=== PATIENT | female | born 1990 | race Caucasian/White ===

== ENCOUNTER 2017-05-10 22:26 | Emergency (ER) | payer SELFPAY ==
--- NOTE | 2017-05-10 22:32 | PDOC ---
History of Present Illness - General Chief Complaint: Injury Stated Complaint: INJURY RIGHT ANKLE Time Seen by Provider: 05/10/17 22:29 - History of Present Illness Initial Comments: This 26-year-old woman presents with a history of injuring her right ankle when sliding into third base while playing soft ball just prior to presentation. Patient states that she turned her ankle when this occurred and since then she has had pain with weightbearing. Patient has a history of a growth plate fracture in one of her ankles but is unsure if it was right or left. Otherwise , she has had no previous history of ankle injury. Patient denies any other injury and had no LOC. Past History - Past Medical History Allergies/Adverse Reactions: Allergies Allergy/AdvReac Type Severity Reaction Status Date / Time No Known Allergies Allergy Verified 05/10/17 22:27 Home Medications: Ambulatory Orders Bupropion HCl [Wellbutrin Sr] 150 mg PO DAILY 05/10/17 Escitalopram Oxalate [Lexapro -] 5 mg PO DAILY 05/10/17 Review of Systems - Review of Systems Able to Perform ROS?: Yes Comments:: 12 point review of systems is negative except for what is noted in the history of present illness *Physical Exam - Physical Exam Comments: GENERAL: Young adult female, alert and oriented 3, no acute distress HEAD: Normal with no signs of trauma. EYES: PERRLA, EOMI, sclera anicteric, conjunctiva clear. ENT: Ears normal, nares patent, oropharynx clear without exudates. Dry mucous membranes. NECK: Normal range of motion, supple without lymphadenopathy, JVD, or masses. LUNGS: Breath sounds equal, clear to auscultation bilaterally. No wheezes, and no crackles. HEART:Regular rate and rhythm, normal S1 and S2 without murmur, rub or gallop. ABDOMEN:.normal bowel sounds No guarding,tenderness or rebound.No masses No distention. EXTREMITIES: Right lower extremity: Mild tenderness, moderate edema lateral malleolus of the ankle No ecchymosis or deformity noted; no foot tenderness/edema/deformity noted Distal neurovascular functioning intact Remainder of the extremity exam is normal. NEUROLOGICAL: Cranial nerves II through XII grossly intact. Normal speech. No focal neurological deficits. MUSCULOSKELETAL: Back non-tender to palpation, no CVA tenderness SKIN: Warm, Dry, normal turgor, no rashes or lesions noted. Progress Note - Progress Note Progress Note: Right ankle x-ray showed no evidence of acute fracture or dislocation. Ankle stirrup removable splint placed; the patient and her mother state that they have crutches at home that are fitted for the patient. Meanwhile, the patient should elevate the right ankle as much as possible and apply ice for the next 2 days. Patient plays soft ball competitively and inquired when she can return to athletic activity. Patient should not return to athletic activity until cleared by an orthopedist. Alyson lyles is home restoration service supervisor for orthopedic surgery: Referral information given to the patient for follow-up appointment. *DC/Admit/Observation/Transfer Diagnosis at time of Disposition: Right ankle sprain Qualifiers: Encounter type: initial encounter Involved ligament of ankle: tibiofibular ligament Qualified Code(s): S93.431A - Sprain of tibiofibular ligament of right ankle, initial encounter - Discharge Dispostion Disposition: HOME Condition at time of disposition: Stable - Referrals Referrals: Joao Shields MD [Staff Physician] - - Patient Instructions Printed Discharge Instructions: Ankle Sprain Additional Instructions: ice/elevate the right ankle as much possible over the next 2 days Crutches for ambulation for the next 3 days Wear splint during the day for the next 10 days Ibuprofen/naproxen/acetaminophen as needed for pain Follow-up with orthopedist (Dr. Alyson lyles or other group as per insurance) prior to resuming athletic activity
[2017-05-10 22:35] VITALS: BP 119/76; PULSE 82; TEMP 98.1; BMI 29.2
== END 2017-05-11 00:22 | disposition home or self-care (01) ==
LOC: FER 22:26
DX: S93.431A Sprain of tibiofibular ligament of right ankle, initial encounter (principal); X58.XXXA Exposure to other specified factors, initial encounter; Y93.64 Activity, baseball; Y92.9 Unspecified place or not applicable
CPT/HCPCS: 73610-TC-RT; 84703; 99281-25

== ENCOUNTER 2017-12-14 02:13 | Emergency (ER) | payer OTHER ==
[2017-12-14 02:20] VITALS: BP 119/75; PULSE 78; TEMP 97.7; BMI 27.8
[2017-12-14 02:52] LABS: URINE APPEARANCE CLOUDY; URINE BILIRUBIN NEGATIVE (<2.0 mg/dL); URINE BLOOD 3+ (NEGATIVE); URINE COLOR AMBER; URINE GLUCOSE (UA) NEGATIVE (NEGATIVE); URINE KETONE NEGATIVE (NEGATIVE); URINE NITRITE NEGATIVE (NEGATIVE); URINE UROBILINOGEN NEGATIVE mg/dL (0.2-1.0)
[2017-12-14 02:54] LABS: URINE LEUK ESTERASE 3+ (NEGATIVE); URINE PROTEIN 3+ (NEGATIVE)
--- NOTE | 2017-12-14 03:02 | PDOC ---
History of Present Illness - General Chief Complaint: Urinary Problem Stated Complaint: BURNING, PAIN ON URINATION Time Seen by Provider: 12/14/17 02:20 - History of Present Illness Initial Comments: This 27-year-old woman with no significant past medical history presents one- day history of dysuria/intermittent pelvic cramping pain/mild hematuria. Patient had minimal dysuria 2 days ago and took [id number] Azo with resolution of symptom. Patient had one previous history of similar dysuria; at that time, [id number] medications were adequate for complete resolution of symptoms. Patient currently denies back/pelvic pain, fever/chills, nausea/ vomiting. LMP was last week. Past History - Past Medical History Allergies/Adverse Reactions: Allergies Allergy/AdvReac Type Severity Reaction Status Date / Time No Known Allergies Allergy Verified 12/14/17 02:15 Home Medications: Ambulatory Orders Bupropion HCl [Wellbutrin Sr] 150 mg PO DAILY 05/10/17 Escitalopram Oxalate [Lexapro -] 30 mg PO DAILY 05/10/17 Cephalexin Monohydrate [Keflex -] 500 mg PO Q8H #15 capsule 12/14/17 COPD: No Other medical history: ANXIETY/DEPRESSION - Suicide/Smoking/Psychosocial Hx Smoking History: Never smoked Have you smoked in the past 12 months: No Information on smoking cessation initiated: No Hx Alcohol Use: No Drug/Substance Use Hx: No Substance Use Type: None Review of Systems - Review of Systems Able to Perform ROS?: Yes Comments:: 12 point review of systems is negative except for what is noted in the history of present illness *Physical Exam - Vital Signs Last Vital Signs Temp Pulse Resp BP Pulse Ox 97.7 F 78 16 119/75 100 12/14/17 02:16 12/14/17 02:16 12/14/17 02:16 12/14/17 02:16 12/14/17 02:16 - Physical Exam Comments: GENERAL: Adult female, alert and oriented 3, in no acute distress HEAD: Normal with no signs of trauma. EYES: PERRLA, EOMI, sclera anicteric, conjunctiva clear. ENT: Ears normal, nares patent, oropharynx clear without exudates. Dry mucous membranes. NECK: Normal range of motion, supple without lymphadenopathy, JVD, or masses. LUNGS: Breath sounds equal, clear to auscultation bilaterally. No wheezes, and no crackles. HEART:Regular rate and rhythm, normal S1 and S2 without murmur, rub or gallop. ABDOMEN:.normal bowel sounds. Minimal suprapubic tenderness. No guarding or rebound.No masses No distention. EXTREMITIES: Normal range of motion, no edema. No clubbing or cyanosis. No erythema, or tenderness. NEUROLOGICAL: Cranial nerves II through XII grossly intact. Normal speech. No focal neurological deficits. MUSCULOSKELETAL: Back non-tender to palpation, no CVA tenderness SKIN: Warm, Dry, normal turgor, no rashes or lesions noted. ED Treatment Course - ADDITIONAL ORDERS Additional order review: Laboratory Results 12/14/17 12/14/17 02:21 02:21 Urine Color Ronna Urine Appearance Cloudy Urine pH 5.0 Ur Specific Chestnut 1.028 Urine Protein 3+ H Urine Glucose (UA) Negative Urine Ketones Negative Urine Blood 3+ H Urine Nitrite Negative Urine Bilirubin Negative Urine Urobilinogen Negative Ur Leukocyte Esterase 3+ H Urine HCG, Qual Negative Progress Note - Progress Note Progress Note: Urinalysis positive for WBCs(1342)/RBCs(1197); many mucus/few epi. Urine C&S vending. Patient will be treated empirically with Keflex 500 mg 3 times per day. First dose will be given here in the emergency room. Patient should return to ER if she has worsening of pain or experiences fever/ vomiting. Meanwhile, patient should drink plenty of water. She has OTC Azo at home which she can take as needed up to 3 times a day for dysuria over the next 24 hours. *DC/Admit/Observation/Transfer Diagnosis at time of Disposition: UTI (urinary tract infection) Qualifiers: Urinary tract infection type: acute cystitis Hematuria presence: with hematuria Qualified Code(s): N30.01 - Acute cystitis with hematuria - Discharge Dispostion Disposition: HOME Condition at time of disposition: Stable - Prescriptions Prescriptions: Cephalexin Monohydrate [Keflex -] 500 mg PO Q8H #15 capsule - Referrals - Patient Instructions Printed Discharge Instructions: Urinary Tract Infection Additional Instructions: Drink plenty of water Keflex 500 mg 3 times a day for 5 days Can take Azo as needed Return to ER if you have worsening pain/fever/vomiting Follow-up with your doctor within the next 3-4 days - Post Discharge Activity Forms/Work/School Notes: Back to Work
[2017-12-14 03:05] LABS: EPI CELLS RARE /HPF (FEW); URINE MUCUS MANY
[2017-12-14] MEDS ORDERED: CEPHALEXIN MONOHYDRATE 500 MG CAPSULE (UD) PO ONE (03:18)
[2017-12-14] MEDS ORDERED: CEPHALEXIN MONOHYDRATE 500 MG CAPSULE (UD) ONE (03:23)
== END 2017-12-14 03:27 | disposition home or self-care (01) ==
LOC: FER 02:13
DX: N30.01 Acute cystitis with hematuria (principal); F41.8 Other specified anxiety disorders
CPT/HCPCS: 81003; 81015; 84703; 87086; 99281-25

== ENCOUNTER 2020-07-20 11:21 | Emergency (ER) | payer OTHER | END 2020-07-20 12:53 | disposition home or self-care (01) | LOC: JVIRT 11:21 | DX: Z03.818 Encounter for observation for suspected exposure to other biological agents ruled out (principal) | CPT/HCPCS: C9803; Q3014-GT; U0003 ==

== ENCOUNTER 2023-07-14 19:30 | Emergency (ER) | payer BC, OTHER ==
[2023-07-14] MEDS ORDERED: ACETAMINOPHEN INJECTION 100 ML IVPB ONE (19:45)
[2023-07-14] MEDS ORDERED: diazePAM 2 MG TABLET ONE (19:45)
[2023-07-14 19:48] VITALS: BP 120/76; PULSE 58; RESP 18; TEMP 98.4; BMI 23.9
[2023-07-14] MEDS ORDERED: SODIUM CHLORIDE 1,000 ML IV ONE (20:26)
[2023-07-14] MEDS ORDERED: ONDANSETRON 4 MG/2 ML VIAL IVPB ONE (20:26)
[2023-07-14] MEDS ORDERED: MECLIZINE HCL 25 MG TABLET (FP) PO ONE (20:27)
[2023-07-14] MEDS ORDERED: ONDANSETRON 4 MG/2 ML VIAL ONE (20:30)
[2023-07-14 20:41] LABS: HEMATOCRIT 40.4 % (32.4-45.2); HEMOGLOBIN 13.9 G/dL (10.7-15.3); MCH 30.1 pg (25.7-33.7); MCHC 34.3 g/dl (32.0-36.0); MEAN CELL VOLUME 87.9 fl (80-96); MEAN PLT VOLUME 8.8 fl (7.5-11.1); PLATELET COUNT 269.8 10^3/uL (134-434); RDW 13.9 % (11.6-15.6); WHITE BLOOD COUNT 4.8 10^3/uL (4.0-10.8)
[2023-07-14 20:55] LABS: ALBUMIN 4.5 g/dl (3.4-5.0); BILIRUBIN,TOTAL 0.6 mg/dl (0.2-1); CALCIUM 9.9 mg/dl (8.5-10.1); TOT PROT 6.6 g/dl (6.4-8.2)
[2023-07-14] MEDS ORDERED: MECLIZINE HCL 25 MG TABLET (FP) ONE (20:57)
[2023-07-14 21:04] LABS: EPITHELIAL CELLS 0-5 /hpf
[2023-07-14 21:07] LABS: AMORP PHOS MODERATE /hpf (NONE SEEN)
== END 2023-07-14 21:36 | disposition home or self-care (01) ==
LOC: FER 19:30
PROC: 3E033GC Introduction of Other Therapeutic Substance into Peripheral Vein, Percutaneous Approach (ICD-10-PCS; principal; 2023-07-14)
PROC: 3E0337Z Introduction of Electrolytic and Water Balance Substance into Peripheral Vein, Percutaneous Approach (ICD-10-PCS; 2023-07-14)
DX: R11.0 Nausea (principal); R42 Dizziness and giddiness
CPT/HCPCS: 36415; 70450-TC; 80053; 81003; 81015; 81025; 85027; 87086; 99284-25